=== PATIENT | male | born 1950 | race Caucasian/White ===

== ENCOUNTER → 2018-01-08 | Outpatient (CLI) | payer OTHER ==
[~2018-01-08] VITALS: Ht 175.3 cm; Wt 70.3 kg
[~2018-01-08] MED LIST: ASPIRIN325 PO; GEMFIBROZIL 60600 MG PO; LIPITOR40 MG PO; LOPRESSOR50 PO; MOBIC7.5 MG PO; NITROGLYCERIN0.4 MG SUBLING; PANTOPRAZOLE SO40 M1 PO; TUMS PO
--- NOTE | ~2018-01-08 | P ---
[facility] [place] [address] PROCEDURE REPORT Name: LENCHO PEARSON [id number] Admission: 01/08/18 Attend Phys: Eliot Griffin Discharge: Date of : 46 Report #: [id number] THIS REPORT FOR: //name// CC: Eliot Rebolledo MD DATE OF SERVICE: 01/08/2018 PROCEDURE PERFORMED: Colonoscopy. HISTORY OF PRESENT ILLNESS: The patient is a 67-year-old male who presents today for a screening colonoscopy. Denies any symptoms. No family history of colon cancer. DESCRIPTION OF PROCEDURE: The risks and benefits of the procedure were explained to the patient, those risks including but not limited to bleeding, perforation and the risk of sedation. He understood these risks and gave informed consent. Sedation was given using propofol per anesthesia. Next, a digital rectal exam was initially performed, which showed external hemorrhoids, otherwise normal. Next, using a standard Olympus colonoscope, the scope was placed in the patient's anus and advanced under direct vision to the cecum. The overall prep was excellent. The cecum and ileocecal valve were normal in appearance. The ascending, transverse and descending colon were normal. A few small scattered diverticula were noted in the sigmoid colon, otherwise normal. The rectal mucosa was normal. On retroflexion, no abnormalities were noted. The scope was then withdrawn and the procedure terminated. The patient tolerated the procedure well. IMPRESSION: 1. Mild sigmoid diverticulosis. 2. External hemorrhoids. 3. Otherwise, normal colonoscopy. RECOMMENDATIONS: Repeat colonoscopy in 10 years. Thank you for allowing me to participate in his care. By: [id number] Eliot Tejeda MD /nt
== END | disposition home or self-care (01) ==
LOC: GI 08:20
DX: Z12.11 Encounter for screening for malignant neoplasm of colon (principal); K57.30 Diverticulosis of large intestine without perforation or abscess without bleeding; K64.4 Residual hemorrhoidal skin tags; I10 Essential (primary) hypertension; E78.5 Hyperlipidemia, unspecified; K21.9 Gastro-esophageal reflux disease without esophagitis; F17.210 Nicotine dependence, cigarettes, uncomplicated; Z98.890 Other specified postprocedural states; Z95.1 Presence of aortocoronary bypass graft; Z96.641 Presence of right artificial hip joint; Z88.8 Allergy status to other drugs, medicaments and biological substances; Z79.82 Long term (current) use of aspirin; Z79.899 Other long term (current) drug therapy
CPT/HCPCS: 62110; 62900

== ENCOUNTER → 2021-01-20 | Outpatient (CLI) | payer OTHER ==
[~2021-01-20] VITALS: Ht 175.3 cm; Wt 68.0 kg
[~2021-01-20] MED LIST changes: +PRESERVISION A1 EAC2 PO; +ROSUVASTATIN CA20 MG PO; +WELLBUTRIN SR150 M1 PO; +XALATAN2.5 M1 OPHTHALMIC
--- NOTE | 2021-01-24 18:06 | PATH ---
[facility] [place] [address] PATHOLOGY RPT PROCEDURE Name: LENCHO MARQUEZ Room #: REG HOLGER Mita.#: [id number] Admission: 01/20/21 Date of : 46 Discharge: Report #: [id number] Path Case #: [id number] [facility] Accession Number: [id number] . 01 Material submitted: . PART A: duodenum - DUODENAL BX R/O SPRUE PART B: gastrointestinal site - GASTRIC BX GASTRITIS R/O H-PYLORI PART C: sigmoid colon - BX SIGMOID COLON POLYP X2 PART D: rectum - BX RECTAL POLYP X2 . 01 Clinical history: . EGD COLONOSCOPY ANEMIA . 02 Diagnosis: A. Small bowel mucosa, duodenum rule out sprue, endoscopic biopsy: - No diagnostic abnormalities present. - Negative for villous blunting or increase in intraepithelial lymphocytes. . B. Gastric mucosa, gastritis, rule out H. pylori, endoscopic biopsy: - Moderate reactive gastropathy. - Negative for intestinal metaplasia or atrophy. - Negative for Helicobacter pylori (properly-controlled immunohistochemical stain performed). . C. Polyp x2, sigmoid colon polyp, endoscopic biopsy: - Tubular adenoma identified in multiple fragments. - Negative for high grade dysplasia. . D. Polyp x2, rectal polyp, endoscopic biopsy: - Hyperplastic polyp identified in multiple fragments. - Negative for dysplasia. . (IUV:mml; 01/24/2021) QLM 01/24/2021 1216 Local . 02 Electronically signed: . Vernell Palomo MD, Pathologist NPI- [id number] . 01 Gross description: . A. The specimen is received in formalin, labeled "Lencho Marquez duodenal biopsy". Received are four segments of pale abarca tissue ranging in size from 0.3-0.6 cm in maximum dimensions. The specimen is submitted entirely in cassette [place] [address] PATHOLOGY RPT PROCEDURE Name: LENCHO MARQUEZ Room #: REG CLI [facility]#: [id number] Admission: 01/20/21 Date of : 46 Discharge: Report #: [id number] Path Case #: [id number] . B. The specimen is received in formalin, labeled "Lencho Marquez gastric biopsy". Received are three segments of pale abarca tissue ranging in size from 0.3-0.5 cm in maximum dimensions. The specimen is submitted entirely in cassette B1. . C. The specimen is received in formalin, labeled "Lencho Marquez, sigmoid colon polyp". Received are four segments of pale abarca tissue ranging in size from 0.3-0.4 cm in maximum dimensions. The specimen is submitted entirely in cassette C1. . D. The specimen is received in formalin, labeled "Lencho Marquez, biopsy rectal polyp". Received are four segments of pale abarca tissue measuring 0.2 cm each in maximum dimensions. The specimen is submitted entirely in cassette D1. (CAA; 01/23/2021) QAC/QAC 01/23/2021 1325 Local . 02 Pathologist provided ICD-10: K31.9, D12.5, K62.1, D64.9 . 02 CPT . 686598, 019103, 563485, 995186, U52098 Specimen Comment: A courtesy copy of this report has been sent to [phone], [phone] Specimen Comment: [id number] Specimen Comment: Report sent to / DR VANG Performed at: [address], [place] [id number] MD Jose Estrada MD Phone: [phone] Performed at: [address] [id number] MD Vernell Palomo MD Phone: [phone]
--- NOTE | 2021-01-25 08:07 | P ---
[facility] [place] [address] PROCEDURE REPORT Name: LENCHO PEARSON Room #: REG Rylan Connelly#: [id number] Admission: 01/20/21 Attend Phys: Eliot Griffin Discharge: Date of : 46 Report #: [id number] THIS REPORT FOR: cc: Alex Rebolledo,Eliot Young MD ~ DOC #: [id number] cc: ____ Eliot Tejeda MD DATE OF SERVICE: 01/20/2021 PROCEDURE PERFORMED: Colonoscopy with biopsies. HISTORY OF PRESENT ILLNESS: The patient is a 70-year-old male with a history of anemia, last hemoglobin 9.9. He denies any change in his stools or obvious blood in his stools. No family history of colon cancer. He reportedly had a Hemoccult-positive stool test recently. Upper endoscopy was just performed showing grade B erosive esophagitis and mild gastritis. No evidence of active bleeding. Plan is for colonoscopy. DESCRIPTION OF PROCEDURE: The risks and benefits of the procedure were explained to the patient. Those risks including but not limited to bleeding, perforation and the risk of sedation. He understood these risks and gave informed consent. Sedation was given using propofol per anesthesia. Next, digital rectal exam showed small external hemorrhoids, otherwise normal. Next, using a standard Olympus colonoscope, the scope was placed in the patient's anus and advanced under direct vision to the cecum. The overall prep was good. The cecum and ileocecal valve were normal in appearance. The ascending, transverse and descending colon were normal. In the sigmoid colon, multiple diverticula were noted. No evidence of inflammation. Two 3-4 mm sessile polyps were noted in the sigmoid colon, both were removed with cold forceps. In the rectum, another 2 polyps were noted, 3-4 mm, both removed with cold forceps. On retroflexion, small nonbleeding internal hemorrhoids were noted. The scope was then withdrawn and the procedure terminated. The patient tolerated the procedure well. IMPRESSION: 1. Small colonic polyps. 2. Sigmoid diverticulosis. 3. Internal and external hemorrhoids. 4. Otherwise normal colonoscopy. No evidence of bleeding on exam today. RECOMMENDATIONS: 1. Await biopsy results. 2. Repeat colonoscopy in [address] [address] PROCEDURE REPORT Name: LENCHO PEARSON Room #: REG HOLGER Connelly#: [id number] Admission: 01/20/21 Attend Phys: Eliot Griffin Discharge: Date of : 46 Report #: [id number] 3. The patient had grade B erosive esophagitis. No evidence of active bleeding. Plan is to start daily PPI therapy. We would recommend continuing to observe hemoglobin now on treatment. Thank you for allowing me to participate in his care. Eliot Tejeda MD CCM/JOEL/LUIS ARMANDO <ELECTRONICALLY SIGNED> By: Eliot Tejeda MD 01/25/21806 08 48 Eliot Tejeda MD /nt
--- NOTE | 2021-01-25 08:07 | P ---
[facility] [place] [address] PROCEDURE REPORT Name: LENCHO PEARSON Room #: REG Rylan Connelly#: [id number] Admission: 01/20/21 Attend Phys: Eliot Griffin Discharge: Date of : 46 Report #: [id number] THIS REPORT FOR: cc: Alex Rebolledo Steven F. DO McElhinney, Christian C. MD ~ DOC #: [id number] cc: ____ Eliot Tejeda MD DATE OF SERVICE: 01/20/2021 PROCEDURE PERFORMED: Upper endoscopy with biopsies. HISTORY OF PRESENT ILLNESS: The patient is a 70-year-old male with a history of anemia. Last hemoglobin was 9.9. He denies any obvious bright red blood per rectum or melena. He does complain of reflux and heartburn at times. He is not taking PPI therapy for the last 2 years. He denies any dysphagia. He does report some nausea and vomiting at times. His weight has been stable. Plan is for EGD and colonoscopy today. He also is on aspirin for history of coronary artery disease. The patient also with recent Hemoccult positive stool. DESCRIPTION OF PROCEDURE: The risks and benefits of the procedure were explained to the patient, those risks including but not limited to bleeding, perforation and the risk of sedation. He understood these risks and gave informed consent. Sedation was given using propofol per Anesthesia. Next, using a standard Olympus upper endoscope, the scope was placed in the patient's mouth and advanced under direct vision through the esophagus, stomach and into the second portion of the duodenum. The larynx was normal in appearance. The upper and mid esophagus was normal. In the distal esophagus at the GE junction, grade B erosive esophagitis was noted. No evidence of bleeding. There was a mild gastritis noted in the gastric body and antrum. Biopsies were obtained to rule out H. pylori. No evidence of ulcerations or erosions. The pylorus was normal and patent. The duodenal bulb, first and second portion were all normal. Biopsies were obtained to rule out the possibility of celiac sprue. The scope was then withdrawn and the procedure terminated. The patient tolerated the procedure well. IMPRESSION: 1. Grade B erosive esophagitis. 2. Mild gastritis. 3. Otherwise normal. No evidence of active bleeding. RECOMMENDATIONS: 1. Await biopsy results. 2. Recommend daily PPI therapy long-term. [address] [address] PROCEDURE REPORT Name: LENCHO PEARSON Room #: REG HOLGER Connelly#: [id number] Admission: 01/20/21 Attend Phys: Eliot Griffin Discharge: Date of : 46 Report #: [id number] 3. Colonoscopy ____. Thank you for allowing me to participate in his care. Eliot Tejeda MD CCM/TYRA/LUIS ARMANDO <ELECTRONICALLY SIGNED> By: Eliot Tejeda MD 01/25/21806 0734 1929 Eliot Tejeda MD /nt
== END | disposition home or self-care (01) ==
LOC: GI 07:04
PROVIDERS: ATTEND Specialist
DX: R19.5 Other fecal abnormalities (principal); D12.5 Benign neoplasm of sigmoid colon; K62.1 Rectal polyp; K57.30 Diverticulosis of large intestine without perforation or abscess without bleeding; K64.8 Other hemorrhoids; K64.4 Residual hemorrhoidal skin tags; K31.9 Disease of stomach and duodenum, unspecified; K22.10 Ulcer of esophagus without bleeding; K29.70 Gastritis, unspecified, without bleeding; K21.9 Gastro-esophageal reflux disease without esophagitis; I10 Essential (primary) hypertension; E78.5 Hyperlipidemia, unspecified; F32.9 Major depressive disorder, single episode, unspecified; D64.9 Anemia, unspecified; Z98.890 Other specified postprocedural states; Z79.899 Other long term (current) drug therapy; Z96.641 Presence of right artificial hip joint; Z98.41 Cataract extraction status, right eye; Z98.42 Cataract extraction status, left eye
CPT/HCPCS: 62110; 62900

== ENCOUNTER → 2021-03-17 | Outpatient (CLI) | payer OTHER | LOC: SJCVC 13:46 | PROVIDERS: ATTEND Internal Medicine | DX: R94.31 Abnormal electrocardiogram [ECG] [EKG] (principal); I45.10 Unspecified right bundle-branch block; I49.9 Cardiac arrhythmia, unspecified; R55 Syncope and collapse; I25.10 Atherosclerotic heart disease of native coronary artery without angina pectoris; I10 Essential (primary) hypertension; J44.9 Chronic obstructive pulmonary disease, unspecified; M19.90 Unspecified osteoarthritis, unspecified site; N40.0 Benign prostatic hyperplasia without lower urinary tract symptoms; E78.5 Hyperlipidemia, unspecified; F17.210 Nicotine dependence, cigarettes, uncomplicated; Z95.5 Presence of coronary angioplasty implant and graft; Z88.5 Allergy status to narcotic agent; Z79.82 Long term (current) use of aspirin; Z79.899 Other long term (current) drug therapy; Z82.49 Family history of ischemic heart disease and other diseases of the circulatory system ==

== ENCOUNTER → 2021-04-21 | Outpatient (CLI) | payer OTHER | LOC: SJCVCIMAG 08:53 | PROVIDERS: ATTEND Internal Medicine | DX: I35.8 Other nonrheumatic aortic valve disorders (principal); I35.0 Nonrheumatic aortic (valve) stenosis; I25.10 Atherosclerotic heart disease of native coronary artery without angina pectoris; I10 Essential (primary) hypertension ==

== ENCOUNTER → 2021-05-05 | Outpatient (CLI) | payer OTHER | LOC: SJCVCIMAG 07:48 | PROVIDERS: ATTEND Internal Medicine | DX: I25.10 Atherosclerotic heart disease of native coronary artery without angina pectoris (principal); R55 Syncope and collapse; I10 Essential (primary) hypertension; J44.9 Chronic obstructive pulmonary disease, unspecified; K21.9 Gastro-esophageal reflux disease without esophagitis; E78.5 Hyperlipidemia, unspecified; F17.210 Nicotine dependence, cigarettes, uncomplicated; Z88.5 Allergy status to narcotic agent; Z95.5 Presence of coronary angioplasty implant and graft; Z95.1 Presence of aortocoronary bypass graft; Z72.89 Other problems related to lifestyle ==